=== PATIENT | male | born 1940 | race African-American/Black ===

== ENCOUNTER 2025-05-10 15:38 | Outpatient (CLI) | payer MEDICARE, SELFPAY ==
--- NOTE | ~2025-05-10 | US_ITS ---
EXAMINATION:US venous doppler LE BI INDICATION:Pain in leg, unspecified TECHNIQUE: Multiple grayscale, color flow and Doppler images of the bilateral lower extremity deep venous systems were obtained and reviewed. COMPARISON:None available FINDINGS: The bilateral common femoral, superficial femoral and popliteal veins demonstrate normal respiratory variation, augmentation and compressibility. Color flow is also seen within the bilateral posterior tibial, peroneal, greater saphenous and profunda veins. IMPRESSION: 1: No bilateral lower extremity deep venous thrombosis. If symptoms persist or worsen, consider a short-term follow-up study or additional imaging for further assessment. Reviewed, dictated and finalized at location Q. IMPRESSION: 1: No bilateral lower extremity deep venous thrombosis. If symptoms persist or worsen, consider a short-term follow-up study or additio nal imaging for further assessment.
== END 2025-05-10 15:39 | disposition home or self-care (01) ==
PROVIDERS: PCP Family Medicine Adolescent Medicine; Visit Provider Nurse Practitioner
DX: M79.662 Pain in left lower leg (principal); M79.89 Other specified soft tissue disorders; M79.604 Pain in right leg
CPT/HCPCS: 93970